=== PATIENT | female | born 1940 | race Caucasian/White ===

== ENCOUNTER → 2021-06-06 | Outpatient (REF) | payer MEDICARE, OTHER ==
[2021-06-06 17:55] LABS: APPEARANCE, URINE HAZY (CLEAR); BACTERIA, URINE AUTO 1+ (NEGATIVE); BILIRUBIN, URINE AUTO NEGATIVE (NEGATIVE); BLOOD, URINE BLOOD NEGATIVE (NEGATIVE); COLOR, URINE YELLOW (YELLOW); GLUCOSE, URINE (UA) AUTO NEGATIVE (NEGATIVE); KETONE, URINE AUTO NEGATIVE (NEGATIVE); LEUKOCYTE ESTERASE, URINE AUTO 2+ (NEGATIVE); MUCUS, URINE SMALL (NEGATIVE); NITRITE, URINE AUTO NEGATIVE (NEGATIVE); PROTEIN, URINE AUTO NEGATIVE (NEGATIVE); RBC, URINE AUTO 5 /HPF (0-3); SPECIFIC GRAVITY URINE AUTO 1.008 (1.002-1.035); SQUAMOUS EPITHELIAL CELL UR AU 2 /HPF (0-6); TRANSITIONAL EPITHELIAL AUTO <1 /HPF; UROBILINOGEN, URINE AUTO 0.2 mg/dL (0.0-2.0); WBC, URINE AUTO 37 /HPF (0-3)
== END ==
LOC: M SMT 17:16
PROVIDERS: ATTEND Urology
DX: R31.29 Other microscopic hematuria (principal)
CPT/HCPCS: 81001; 88108; G0463

== ENCOUNTER 2022-05-16 08:37 | Day surgery (SDC) | payer MEDICARE, OTHER ==
[~2022-05-16] VITALS: Ht 160 cm; Wt 81.2 kg
[~2022-05-16 08:37] MED LIST: ASPI81CH33 PO; BSS IRRIG/VANCO(10MG)/TOBRA(5MG)/EPINEPH(1:1000-0.5CC)500ML BAG-ORONLY IR ONE; CEFUROXIME 1MG/0.1ML INTRACAMERAL INJ As Ordered ONE; CYCLOPENTOLATE 1% OPHTH SOLN 2 ML BTL OD SCH; LIDOCAINE 1% SDV 5ML VIAL As Ordered ONE; LIDOCAINE 3.5 % 1ML OPHTH TOPICAL GEL OU ONE; OFLOXACIN 0.3 % (OCUFLOX) OPTH SOL 5ML OD ONE; PHEN100C; PHENYLEPHRINE 2.5% OPHTH SOL 2ML OD SCH; PHENYLEPHRINE HCL 10 % OPHTH. SOL 5ML OD PRN; PRAV20TA2; TROPICAMIDE 1% OPHTH SOLN 2ML OD SCH
[2022-05-16] MEDS ORDERED: MIDAZOLAM INJ 2MG/2ML VIAL (J2250 PER 1MG) As Ordered ONE (10:06)
[2022-05-16 10:26] VITALS: BP 138/60
== END 2022-05-16 10:52 | disposition home or self-care (01) ==
LOC: M SDC 08:37
PROVIDERS: ATTEND Ophthalmology
DX: H25.11 Age-related nuclear cataract, right eye (principal); M19.90 Unspecified osteoarthritis, unspecified site; E78.00 Pure hypercholesterolemia, unspecified; Z79.899 Other long term (current) drug therapy; Z79.82 Long term (current) use of aspirin
CPT/HCPCS: 66984; 92015; J0697; J2250; V2632

== ENCOUNTER → 2022-05-28 | Outpatient (CLI) | payer MEDICARE, OTHER ==
[~2022-05-28] MED LIST changes: -BSS IRRIG/VANCO(10MG)/TOBRA(5MG)/EPINEPH(1:1000-0.5CC)500ML BAG-ORONLY IR ONE; -CEFUROXIME 1MG/0.1ML INTRACAMERAL INJ As Ordered ONE; -CYCLOPENTOLATE 1% OPHTH SOLN 2 ML BTL OD SCH; -LIDOCAINE 1% SDV 5ML VIAL As Ordered ONE; -LIDOCAINE 3.5 % 1ML OPHTH TOPICAL GEL OU ONE; -OFLOXACIN 0.3 % (OCUFLOX) OPTH SOL 5ML OD ONE; -PHENYLEPHRINE 2.5% OPHTH SOL 2ML OD SCH; -PHENYLEPHRINE HCL 10 % OPHTH. SOL 5ML OD PRN; -TROPICAMIDE 1% OPHTH SOLN 2ML OD SCH
== END ==
LOC: M LABSMTC 10:39
PROVIDERS: ATTEND Anesthesiology
DX: Z01.812 Encounter for preprocedural laboratory examination (principal); Z11.52 Encounter for screening for COVID-19

== ENCOUNTER 2022-05-30 08:58 | Day surgery (SDC) | payer MEDICARE, OTHER ==
[~2022-05-30] VITALS: Ht 160 cm; Wt 79.4 kg
[~2022-05-30 08:58] MED LIST changes: +CEFUROXIME 1MG/0.1ML INTRACAMERAL INJ As Ordered ONE; +LIDOCAINE 1% 1ML PF SYRINGE (OR EYE CASES) As Ordered ONE
[2022-05-30] MEDS ORDERED: fentaNYL 100 MCG/2 ML INJECTION As Ordered ONE (10:01)
[2022-05-30] MEDS ORDERED: MIDAZOLAM INJ 2MG/2ML VIAL (J2250 PER 1MG) As Ordered ONE (10:01)
[2022-05-30] MEDS ORDERED: OFLOXACIN 0.3 % (OCUFLOX) OPTH SOL 5ML OS ONE (10:50)
[2022-05-30] MEDS ORDERED: PHENYLEPHRINE HCL 10 % OPHTH. SOL 5ML OS PRN (10:50)
[2022-05-30] MEDS ORDERED: TROPICAMIDE 1% OPHTH SOLN 2ML OS SCH (10:50)
[2022-05-30] MEDS ORDERED: BSS IRRIG/VANCO(10MG)/TOBRA(5MG)/EPINEPH(1:1000-0.5CC)500ML BAG-ORONLY IR ONE (10:50)
[2022-05-30] MEDS ORDERED: LIDOCAINE 3.5 % 1ML OPHTH TOPICAL GEL OU ONE (10:50)
[2022-05-30] MEDS ORDERED: CYCLOPENTOLATE 1% OPHTH SOLN 2 ML BTL OS SCH (10:50)
[2022-05-30] MEDS ORDERED: PHENYLEPHRINE 2.5% OPHTH SOL 2ML OS SCH (10:50)
[2022-05-30] MEDS ORDERED: hydrALAZINE 20MG/ML 1ML VIAL (J0360 PER 20MG) As Ordered ONE (11:01)
[2022-05-30 11:10] VITALS: BP 138/65
== END 2022-05-30 11:35 | disposition home or self-care (01) ==
LOC: M SDC 08:58
PROVIDERS: ATTEND Ophthalmology
DX: H25.12 Age-related nuclear cataract, left eye (principal); E78.00 Pure hypercholesterolemia, unspecified; M19.90 Unspecified osteoarthritis, unspecified site; Z79.899 Other long term (current) drug therapy; Z79.82 Long term (current) use of aspirin
CPT/HCPCS: 66984; 92015; J0360; J0697; J2250; J3010; V2632